=== PATIENT | female | born 1980 | race Hispanic/Latino ===

== ENCOUNTER → 2019-02-02 | Day surgery (SDC) | payer BC ==
[2019-01-29 13:44] LABS: BASOPHILS # (AUTO) 0.1 (0.0-0.1); BASOPHILS % 0.9 % (0.0-1.0); EOSINOPHILS # (AUTO) 0.3 (0.0-0.4); EOSINOPHILS % 3.7 % (0.0-6.0); HEMATOCRIT 39.9 % (34.2-44.1); HEMOGLOBIN 13.9 g/dL (12.0-16.0); LYMPHOCYTES % 22.8 % (18.0-39.1); MEAN CORPUSCULAR HEMOGLOBIN 29.6 pg (28-32); MEAN CORPUSCULAR HGB CONC 34.8 g/dL (31-35); MEAN CORPUSCULAR VOLUME 85.1 fL (81-99); MONOCYTES # (AUTO) 0.6 (0.2-0.8); MONOCYTES % 7.2 % (4.4-11.3); NEUTROPHILS # (AUTO) 5.6 (2.1-6.9); NEUTROPHILS % 65.1 % (38.7-80.0); PLATELET COUNT 294 x10e3/uL (140-360); RED BLOOD COUNT 4.69 x10e6/uL (3.6-5.1); RED CELL DISTRIBUTION WIDTH 12.4 % (11.7-14.4)
[2019-01-29 14:11] LABS: ALANINE AMINOTRANSFERASE 68 IU/L (0-55); ALBUMIN 4.4 g/dL (3.5-5.0); ALBUMIN/GLOBULIN RATIO 1.2 (0.8-2.0); ALKALINE PHOSPHATASE 74 IU/L (40-150); ANION GAP 13.1 mmol/L (8-16); BLOOD UREA NITROGEN 6 mg/dL (7-26); BUN/CREATININE RATIO 9 (6-25); CARBON DIOXIDE 29 mmol/L (22-29); CHLORIDE 98 mmol/L (98-107); CREATININE, SERUM 0.69 mg/dL (0.57-1.11); EST GLOMERULAR FILTRATION RATE > 60 ML/MIN (60-); GLUCOSE 83 mg/dL (74-118); POTASSIUM 4.1 mmol/L (3.5-5.1); SODIUM 136 mmol/L (136-145)
[~2019-02-02] MED LIST: ACETAMINOPHEN 1000 MG/100 ML IV ONE; BUPIVACAINE 0.25%/EPI 30ML SDV INJ ONE; CEFAZOLIN SOD 1 GM VIAL ONE; DEXAMETHASONE SOD PHOS INJ 4 MG/ML VIAL ONE; EPHEDRINE SULFATE INJ 50 MG/10 ML SYR ONE; FENTANYL CITRATE/PF 100MCG/2 ML INJ ONE; HYDROCODONE/APAP 5MG-325MG TAB ONE; KETOROLAC TROMETHAMINE 30 MG/ML VIAL ONE; LIDOCAINE HCL 2% LOCAL INJ 5 ML SDV VIAL INJ ONE; MIDAZOLAM HCL 2 MG/2 ML VIAL ONE; ONDANSETRON HCL INJ 2MG/ML 2ML 2 MG/ML VIAL ONE; PROPOFOL IV EMULSION 10 MG/ML 20 ML VIAL ONE; ROCURONIUM BROMIDE 10 MG/ML 5ML VIAL ONE; SEVOFLURANE INHAL SOLN 250 ML PEN BTL ONE
--- OUTSIDE RECORDS SUMMARY | 2019-02-02 05:40 | XMS REPORT | Summary of Care ---
Author Author [facility] Organization [facility] Address Unknown Phone Unavailable Encounter HQ Ezekielntr_lencho(FIN) [id number] Date(s): 11/25/17 - 11/25/17 [facility] [address], [address] [place], [place] [id number]- [phone] Discharge Disposition: Home or Self Care Attending Physician: Eleanor Varela MD Vital Signs Most recent to 1 oldest [Reference Range]: Height 160.02 cm (11/25/17 8:22 AM) Temperature Oral 97.7 DegF [96.4-99.1 DegF] (11/25/17 8:22 AM) Blood Pressure 113/77 mmHg [90-140/60-90 mmHg] (11/25/17 8:22 AM) Respiratory Rate 16 BRMIN [14-20 BRMIN] (11/25/17 8:22 AM) Peripheral Pulse 69 bpm Rate [60-100 bpm] (11/25/17 8:22 AM) Weight 76.818 kg (11/25/17 8:22 AM) Body Mass Index 30 m2 (11/25/17 8:22 AM) Problem List Condition Effective Dates Status Health Status Informant Simple Active obesity(Confirmed) Allergies, Adverse Reactions, Alerts Substance Reaction Severity Status NKDA Active Medications No Known Medications Results No data available for this section Immunizations No data available for this section Procedures No data available for this section Social History Social History Type Response Alcohol Never Smoking Status Never smoker; Exposure to Tobacco Smoke None; Cigarette Smoking Last 365 Days No; Reg Smoking Cessation Counseling No entered on: 11/25/17 Assessment and Plan No data available for this section
--- OUTSIDE RECORDS SUMMARY | 2019-02-02 05:40 | XMS REPORT | Summary of Care ---
Author Author [facility] Organization [facility] Address Unknown Phone Unavailable Encounter HQ Nichole(FIN) [id number] Date(s): 12/04/17 - 12/04/17 [facility] [address], [address] [place] [address]- [phone] Discharge Disposition: Home or Self Care Attending Physician: Eleanor Varela MD Vital Signs Most recent to 1 oldest [Reference Range]: Height 162.56 cm (12/04/17 8:05 AM) Temperature Oral 97.3 DegF [96.4-99.1 DegF] (12/04/17 8:05 AM) Blood Pressure 106/75 mmHg [90-140/60-90 mmHg] (12/04/17 8:05 AM) Respiratory Rate 16 BRMIN [14-20 BRMIN] (12/04/17 8:05 AM) Peripheral Pulse 68 bpm Rate [60-100 bpm] (12/04/17 8:05 AM) Weight 75.455 kg (12/04/17 8:05 AM) Body Mass Index 28.55 m2 (12/04/17 8:05 AM) Problem List Condition Effective Dates Status Health Status Informant Simple Active obesity(Confirmed) Allergies, Adverse Reactions, Alerts Substance Reaction Severity Status NKDA Active Medications atorvastatin 20 mg oral tablet 20 mg=1 tab, PO, Bedtime, # 90 tab, 1 Refill(s) Start Date: 12/04/17 Status: Ordered atorvastatin 20 mg oral tablet 20 mg=1 tab, PO, Bedtime, # 90 tab, 1 Refill(s), Pharmacy: [facility] [id number] Start Date: 12/04/17 Stop Date: 12/04/17 Status: Discontinued Fish Oil 1000 mg oral capsule 2,000 mg=2 cap, PO, BID, # 360 cap, 1 Refill(s) Start Date: 12/04/17 Stop Date: 06/02/18 Status: Ordered Fish Oil 1000 mg oral capsule 2,000 mg=2 cap, PO, BID, # 360 cap, 1 Refill(s), Pharmacy: [facility] [id number] Start Date: 12/04/17 Stop Date: 12/04/17 Status: Discontinued triamcinolone topical 0.1% cream 1 appl, TOP, TID, PRN For Rash, X 14 day, # 60 gm, 1 Refill(s) Start Date: 12/04/17 Stop Date: 01/01/18 Status: Ordered triamcinolone topical 0.1% cream 1 appl, TOP, TID, PRN For Rash, X 14 day, # 60 gm, 1 Refill(s), Pharmacy: [facility] [id number] Start Date: 12/04/17 Stop Date: 12/04/17 Status: Discontinued Results No data available for this section Immunizations No data available for this section Procedures No data available for this section Social History Social History Type Response Alcohol Never Smoking Status Never smoker; Exposure to Tobacco Smoke None; Cigarette Smoking Last 365 Days No; Reg Smoking Cessation Counseling No entered on: 12/04/17 Assessment and Plan No data available for this section
--- OUTSIDE RECORDS SUMMARY | 2019-02-02 05:40 | XMS REPORT | Continuity of Care Document ---
Author Author [facility] Organization [facility] Address Unknown Phone Unavailable Care Team Providers Care Autoglazier Name Role Phone [facility] [employer] Information [employer] Unavailable Unavailable Problems Problem Status Onset Date Classification Date Reported Comments Source US ASHOKAADER --- DXRIGHT UPPER QUADRAN Active 09/01/2018 [facility] Simple obesity Active Problem 09/04/2018 [facility] Medications Medication Details Route Status Patient Instructions Ordering Provider Order Date Source tramadol hydrochloride 50 MG Oral Tablet 50 mg=1 tab, PO, BID, X 15 day, # 40 tab, 0 Refill(s) Active 09/01/2018 [facility] Triamcinolone Acetonide 1 MG/ML Topical Cream 1 appl, TOP, TID, PRN For Rash, X 14 day, # 60 gm, 1 Refill(s) Active 12/04/2017 [facility] Fish Oil 1000 mg oral capsule 2,000 mg=2 cap, PO, BID, # 360 cap, 1 Refill(s) Active 12/04/2017 [facility] atorvastatin 20 mg oral tablet 20 mg=1 tab, PO, Bedtime, # 90 tab, 1 Refill(s) Active 12/04/2017 [facility] Triamcinolone Acetonide 1 MG/ML Topical Cream 1 appl, TOP, TID, PRN For Rash, X 14 day, # 60 gm, 1 Refill(s), Pharmacy: [facility] [id number] Inactive 12/04/2017 [facility] Fish Oil 1000 mg oral capsule 2,000 mg=2 cap, PO, BID, # 360 cap, 1 Refill(s), Pharmacy: [facility] [id number] Inactive 12/04/2017 [facility] atorvastatin 20 mg oral tablet 20 mg=1 tab, PO, Bedtime, # 90 tab, 1 Refill(s), Pharmacy: [facility] [id number] Inactive 12/04/2017 [facility] Allergies, Adverse Reactions, Alerts No Known Medication Allergies Immunizations No Data Provided for This Section Results No Data Provided for This Section Pathology Reports No Data Provided for This Section Diagnostic Reports Report Value Date Source Gallbladder US Patient Name: RAYMUNDO MISTRY : 1980; Age: 38 years y/o Female MR: [id number] Study: Gallbladder US 09/01/2018 2:27 PM [facility] Ordering Physician: Eleanor Varela MD Comparison: None Clinical Indication: - RUQ PAIN; Pancreas head has a normal sonographic appearance; the body and tail are obscured. No gallstones are demonstrated. The gallbladder and liver have a normal sonographic appearance. The span of the liver is 14 cm. No intrahepatic duct dilatation. Common duct caliber is 3 mm. Right kidney measures 9.8 x 4.7 x 5.1 cm. Right kidney has an otherwise normal sonographic appearance. Flow at the main portal vein is hepatopedal. The visualized IVC is unremarkable. IMPRESSION:No gallstones. Unremarkable gallbladder ultrasound. SL: LES 09/01/2018 [facility] Consultation Notes No Data Provided for This Section Discharge Summaries No Data Provided for This Section History and Physicals No Data Provided for This Section Vital Signs Vital Sign Value Date Comments Source BMI Calculated 29.47 09/01/2018 [facility] Respitory Rate 16 09/01/2018 [facility] Temperature Oral (F) 97.5 F 09/01/2018 [facility] Weight 75.455 09/01/2018 [facility] Height 160.02 cm 09/01/2018 [facility] Heart Rate 73 09/01/2018 [facility] Systolic (mm Hg) 99 09/01/2018 [facility] Diastolic (mm Hg) 66 09/01/2018 [facility] BMI Calculated 28.55 12/04/2017 [facility] Weight 75.455 12/04/2017 [facility] Height 162.56 cm 12/04/2017 [facility] Respitory Rate 16 12/04/2017 [facility] Temperature Oral (F) 97.3 F 12/04/2017 [facility] Heart Rate 68 12/04/2017 [facility] Systolic (mm Hg) 106 12/04/2017 [facility] Diastolic (mm Hg) 75 12/04/2017 [facility] Height 160.02 cm 11/25/2017 [facility] BMI Calculated 30 11/25/2017 [facility] Weight 76.818 11/25/2017 [facility] Systolic (mm Hg) 113 11/25/2017 [facility] Diastolic (mm Hg) 77 11/25/2017 [facility] Temperature Oral (F) 97.7 F 11/25/2017 [facility] Heart Rate 69 11/25/2017 [facility] Respitory Rate 16 11/25/2017 [facility] Encounters Location Location Details Encounter Type Encounter Number Reason For Visit Attending Provider ADM Date DC Date Status Source Outpatient [id number] ELEANOR VARELA 11/25/2017 [facility] Outpatient [id number] Eleanor Varela 11/25/2017 11/26/2017 [facility] Out[facility] [id number] ELEANOR VARELA 12/04/2017 [facility] Outpatient [id number] Eleanor Varela 12/04/2017 12/05/2017 [facility] Outpatient [id number] ELEANOR VARELA 09/01/2018 [facility] Outpatient [id number] Eleanor Varela 09/01/2018 09/02/2018 [facility] Outpatient [id number] Eleanor Varela 09/01/2018 09/02/2018 [facility] Procedures No Data Provided for This Section Assessment and Plan No Data Provided for This Section Plan of Care No Data Provided for This Section Social History Social History Date Source Social History TypeResponse Alcohol Never Smoking Status Never smoker; Exposure to Tobacco Smoke None; Cigarette Smoking Last 365 Days No; Reg Smoking Cessation Counseling No entered on: 09/01/18 11/25/2017 [facility] Social History TypeResponse Alcohol Never Smoking Status Never smoker; Exposure to Tobacco Smoke None; Cigarette Smoking Last 365 Days No; Reg Smoking Cessation Counseling No entered on: 09/01/18 11/25/2017 [facility] Family History No Data Provided for This Section Advance Directives No Data Provided for This Section Functional Status No Data Provided for This Section
--- OUTSIDE RECORDS SUMMARY | 2019-02-02 05:40 | XMS REPORT | Summary of Care ---
Author Author [facility] Organization [facility] Address Unknown Phone Unavailable Encounter HQ Radha_lencho(FIN) [id number] Date(s): 09/01/18 - 09/01/18 [facility] [address], [address] [place], [place] [address]- [phone] Discharge Disposition: Home or Self Care Attending Physician: Eleanor Varela MD Vital Signs Most recent to 1 oldest [Reference Range]: Height 160.02 cm (09/01/18 10:42 AM) Temperature Oral 97.5 DegF [96.4-99.1 DegF] (09/01/18 10:42 AM) Blood Pressure 99/66 mmHg [90-140/60-90 mmHg] (09/01/18 10:42 AM) Respiratory Rate 16 BRMIN [14-20 BRMIN] (09/01/18 10:42 AM) Peripheral Pulse 73 bpm Rate [60-100 bpm] (09/01/18 10:42 AM) Weight 75.455 kg (09/01/18 10:42 AM) Body Mass Index 29.47 m2 (09/01/18 10:42 AM) Problem List Condition Effective Dates Status Health Status Informant Simple Active obesity(Confirmed) Allergies, Adverse Reactions, Alerts Substance Reaction Severity Status NKDA Active Medications tramadol 50 mg oral tablet 50 mg=1 tab, PO, BID, X 15 day, # 40 tab, 0 Refill(s) Start Date: 09/01/18 Stop Date: 09/16/18 Status: Ordered Results No data available for this section Immunizations No data available for this section Procedures No data available for this section Social History Social History Type Response Alcohol Never Smoking Status Never smoker; Exposure to Tobacco Smoke None; Cigarette Smoking Last 365 Days No; Reg Smoking Cessation Counseling No entered on: 09/01/18 Assessment and Plan No data available for this section
--- OUTSIDE RECORDS SUMMARY | 2019-02-02 05:40 | XMS REPORT | Summary of Care ---
Author Author [facility] Organization [facility] Address Unknown Phone Unavailable Encounter HQ Encntr_lencho(FIN) [id number] Date(s): 09/01/18 - 09/01/18 [facility] [address] [place] [address]- Discharge Disposition: Home or Self Care Attending Physician: Eleanor Varela MD Referring Physician: Eleanor Varela MD Vital Signs No data available for this section Problem List Condition Effective Dates Status Health Status Informant Simple Active obesity(Confirmed) Allergies, Adverse Reactions, Alerts Substance Reaction Severity Status NKDA Active Medications No data available for this section Results No data available for this section [...]
[2019-02-02 12:05] VITALS: BP 114/70
--- NOTE | 2019-02-02 15:32 | Operative Report ---
DATE OF PROCEDURE: 02/02/2019 SURGEON: Jalyn Washington MD LIFT MECHANIC: SHIN Henry PREOPERATIVE DIAGNOSES: Pelvic mass, abnormal uterine bleeding, thickened endometrium on ultrasound. POSTOPERATIVE DIAGNOSES: Endometrial polyps, endometriosis, left adnexal cystic mass, extensive adhesions throughout the pelvis. PROCEDURES PERFORMED: A dilatation and curettage and hysteroscopic polypectomy, diagnostic laparoscopy with lysis of adhesions for approximately 35 minutes, as well as a left salpingo-oophorectomy. ANESTHESIA: General. ESTIMATED BLOOD LOSS: 100 mL. COMPLICATIONS: None. FINDINGS: The patient had a small anteverted and right deviated uterus with a large and fixed left pelvic mass noted on bimanual exam. Hysteroscopic findings included normal tubal ostia bilaterally and multiple endometrial polyps. Laparoscopic findings included extensive adhesions within the pelvis between the cystic left pelvic mass. The pelvic sidewall, uterus, posterior cul-de-sac, fallopian tube, ovary, and sigmoid colon. There were also adhesions noted between the anterior aspect of the uterus and the bladder. There were also filmy adhesions noted between the omentum and bowel and the uterine fundus as well as some adhesions noted within the posterior cul-de-sac. A portion of the cul-de-sac had been obliterated apparently by endometriosis. The left-sided adnexal mass was approximately 8 cm in diameter. SPECIMENS: Included left adnexa with cystic mass as well as endometrial curettings with fragments of polyps. INDICATIONS: The patient is a 39-year-old female with a history of pelvic pain, abnormal uterine bleeding, infertility, who was noted on ultrasound to have thickened endometrial lining consistent with possible polyps as well as a large left adnexal cystic mass. PROCEDURE NOTE: Prior to the procedure, the risks, benefits, indications, and alternatives of the procedure were discussed with the patient and consent was obtained. The patient was taken to the operating room where general anesthesia was obtained and the patient was prepped and draped in typical sterile fashion in the modified dorsal lithotomy position in [facility]. A time-out was done. A Rose catheter was placed at the beginning of the procedure. A weighted speculum was placed in the vagina and the anterior lip of the cervix was grasped with an Allis forcep. The cervix was then serially dilated with Hegar dilators to a #18. During the dilation process, the Allis forcep tore the cervix and a single-tooth was replaced instead. The TruClear hysteroscope was then inserted into the cervix and advanced to the uterine fundus. The uterine cavity was explored with the above-noted findings. The TruClear device was then used to morcellate and remove the polyps under direct visualization. All curettings were sent for pathology. A survey of the uterine cavity then revealed a normal-appearing and intact cavity. The hysteroscope and device were removed and a Jessica was placed in order to manipulate the uterus and the single-tooth tenaculum removed from the cervix. Attention was then turned to the abdomen. The infraumbilical port site was identified and injected with a solution of 0.25% Marcaine with epinephrine. An approximately 3 cm horizontal infraumbilical incision was made with a scalpel and the underlying fascia was grasped with Josh clamps and the fascia was opened with Garrido scissors. The underlying peritoneum was entered bluntly. The incision within the fascia was extended to approximately 4 cm in diameter and the edges of this incision were tagged with 0 Vicryl suture. A gel port device was then used. The Matthew portion was placed within the abdominal cavity and all underlying structures were excluded. Three 5 mm laparoscopic trocars were placed within the single site GelPort and then this was put in place over the retractor. The abdomen was then insufflated and survey of the abdomen and pelvis were done with the findings noted above. Lysis of adhesions then was performed with a LigaSure device as well as some blunt dissection with Jayde forceps. Approximately 35 minutes was spent lysing adhesions between the sigmoid colon, the pelvic mass, the pelvic sidewall, the uterus and cul-de-sac. Adhesions were also lysed between the anterior portion of the uterus and the bladder as well as within the pelvic cul-de-sac. The pelvic mass, left tube and ovary were all held with blunt retractors on gentle tension and serially excised using the LigaSure device to sequentially coagulate and cut at the isthmus of the fallopian tube, utero-ovarian ligament and the infundibulopelvic ligaments. All surgical sites were noted to be hemostatic. There was some slight oozing of blood from the left pelvic sidewall and a hemostatic agent was used over this area. Good hemostasis was noted. The specimen was removed via the GelPort site and the GelPort was then removed and the abdomen desufflated. The peritoneum and fascia were then closed in a mass closure technique with multiple interrupted 0 Vicryl sutures. The skin incision was closed with 4-0 Monocryl in a subcuticular fashion and covered with Dermabond. All sponge, lap, needle, and instrument counts were correct x2. The patient was awakened at the end of procedure in stable condition and brought to the recovery room. MD BRANDON Moore/MODL /[id number]
== END | disposition home or self-care (01) ==
LOC: OR 05:33
PROVIDERS: ATTEND Obstetrics & Gynecology Obstetrics
DX: N84.0 Polyp of corpus uteri (principal); N83.12 Corpus luteum cyst of left ovary; N83.292 Other ovarian cyst, left side; N73.6 Female pelvic peritoneal adhesions (postinfective); Z01.812 Encounter for preprocedural laboratory examination
CPT/HCPCS: 36415; 58558; 58661; 80053; 84702; 85025; 88305; J0131; J0690; J1100; J1885; J2001; J2250; J2405; J2704; J3010